=== PATIENT | male | born 1965 | race Caucasian/White ===

== ENCOUNTER 2019-08-07 21:35 | Inpatient (IN) | payer MEDICARE ==
[~2019-08-07] VITALS: Ht 182.9 cm; Wt 97.5 kg
--- NOTE | 2019-08-07 23:20 | NUR ---
PT STATES WHILE SITTING ON EDGE OF BED AT HOME THIS EVENING @~2030 HIS L SIDE BECAME VERY WEAK & HEAVY. STATES HE WAS UNABLE TO PLACE CALL FOR ASSISTANCE TO NEIGHBOR FOR 30 MIN, AND HAD TO SCOOT ACROSS THE FLOOR. STATES ANGEL TO ED, MOST OF THE SYMPTOMS HAD RESOLVED. WHILE WAITING IN THE LOBBY HE EXPERIENCED SIMILIAR S/S, BUT DID NOT LET STAFF KNOW. ON MONITOR. CALL LIGHT INREACH. TBS. WILL CTM.
--- NOTE | 2019-08-07 23:32 | NUR ---
ISIDORO DAN. SPEAKING IN CLEAR SENTANCES.
--- NOTE | 2019-08-07 23:44 | NUR ---
CODE NEURO PAGED / PAGED DR ALLEN FOR DR DOMINGUEZ
--- NOTE | 2019-08-07 23:46 | NUR ---
DR DOMINGUEZ SPOKE WITH DR ALLEN
[2019-08-08 00:03] LABS: BASOPHILS # (AUTO) 0.06 x10^3/uL (0-0.1); BASOPHILS % (AUTO) 1 % (0-1); EOSINOPHILS # (AUTO) 0.16 x10^3/uL (0-0.4); EOSINOPHILS % (AUTO) 3 % (1-7); LYMPHOCYTES # (AUTO) 1.67 x10^3/uL (1-3.4); LYMPHOCYTES % (AUTO) 33 % (22-44); MD NO; MEAN CORPUSCULAR HEMOGLOBIN 30.8 pg (27.5-34.5); MEAN CORPUSCULAR HGB CONC 33.6 g/dL (33.2-36.2); MEAN CORPUSCULAR VOLUME 91.8 fL (81-97); MEAN PLATELET VOLUME 8.9 fL (7.4-10.4); MONOCYTES # (AUTO) 0.36 x10^3/uL (0.2-0.8); MONOCYTES % (AUTO) 7 % (2-9); NEUTROPHILS # (AUTO) 2.74 x10^3/uL (1.8-6.8); NEUTROPHILS % (AUTO) 55 % (42-75); PLATELET COUNT 187 x10^3/uL (130-400); RED BLOOD COUNT 4.63 x10^6/uL (4.38-5.82); RED CELL DISTRIBUTION WIDTH 14.5 % (9.4-14.8)
[2019-08-08 00:08] LABS: ALANINE AMINOTRANSFERASE 22 U/L (12-78); ALBUMIN 3.4 g/dL (3.4-5.0); ANION GAP 5 mmol/L (5-15); CALCIUM 8.7 mg/dL (8.5-10.1); CHLORIDE 108 mmol/L (98-107); CREATININE 1.03 mg/dL (0.7-1.3); INTERNATIONAL NORMALIZED RATIO 0.99 (0.93-1.1); PROTHROMBIN TIME 10.4 Seconds (9.6-11.5)
[2019-08-08 00:12] LABS: ALKALINE PHOSPHATASE 44 U/L (45-117); BILIRUBIN,TOTAL 0.4 mg/dL (0.2-1.0); TOTAL PROTEIN 6.7 g/dL (6.4-8.2); TROPONIN I < 0.015 ng/mL (0.000-0.045)
[2019-08-08] MEDS ORDERED: OMNIPAQUE 350 MG/ML, 100ML BOTTLE ONE (00:12)
--- NOTE | 2019-08-08 00:23 | NUR ---
2ND PIV ESTB. TO CT C CODE NEURO TEAM. NEURO DOC TO DO VIRTUAL EXAM.
--- NOTE | 2019-08-08 00:26 | NUR ---
PT AWARE OF PLAN TO ADMIT. PT CURLED UP IN POSITION ON R SIDE. MAE. HUERTA REMAINS CLEAR.
[2019-08-08] MEDS ORDERED: ONDANSETRON 2MG/ML, 2ML IVPush PRN (01:00)
[2019-08-08] MEDS ORDERED: ATORVASTATIN 40 MG TABLET PO SCH (01:00)
[2019-08-08 01:40] VITALS: BP 155/88
[2019-08-08] MEDS: ASPIRIN 81 MG TABLET EC PO SCH ×2 (02:44→05:56)
[2019-08-08] MEDS: LEVOTHYROXINE 175 MCG TABLET PO SCH (05:56)
[2019-08-08 06:57] LABS: AMPHETAMINE SCREEN, URINE Positive (Negative); BARBITURATE SCREEN, URINE Negative (Negative); BENZODIAZEPINE SCREEN, URINE Negative (Negative); CANNABINOID SCREEN, URINE Negative (Negative); COCAINE SCREEN, URINE Negative (Negative); METHADONE SCREEN, URINE Negative (Negative); OPIATE SCREEN, URINE Negative (Negative)
[2019-08-08 08:25] VITALS: BP 132/87
[2019-08-08] MEDS: INSULIN LISPRO 100 UNITS/ML, PEN SQ-INSULIN SCH ×3 (09:31→16:53)
[2019-08-08] MEDS: NICOTINE 14MG/24 HR PATCH.TD24 TD SCH (10:28)
[2019-08-08 13:30] VITALS: BP 141/87
[2019-08-08 13:30] LABS: FREE T4 (FREE THYROXINE) 0.66 ng/dL (0.76-1.46)
[2019-08-08 19:38] VITALS: BP 135/74
[2019-08-08] MEDS ORDERED: ATORVASTATIN 20 MG TABLET PO SCH (21:00)
[2019-08-09] MEDS: INSULIN LISPRO 100 UNITS/ML, PEN SQ-INSULIN SCH ×4 (01:26→16:35)
[2019-08-09 02:03] VITALS: BP 119/78
[2019-08-09 05:24] LABS: CHOL/HDL RATIO 5.5; LDL/HDL RATIO 3.3 (0.5-3.0)
[2019-08-09] MEDS: LEVOTHYROXINE 175 MCG TABLET PO SCH (05:54)
[2019-08-09] MEDS: ASPIRIN 81 MG TABLET EC PO SCH (05:54)
[2019-08-09 08:30] VITALS: BP 141/88
[2019-08-09] MEDS: NICOTINE 14MG/24 HR PATCH.TD24 TD SCH (11:39)
[2019-08-09 14:48] VITALS: BP 127/82
[2019-08-09] MEDS ORDERED: LEVO100T PO ×2 (18:42)
[2019-08-09] MEDS ORDERED: ASPI81TA45 PO (18:42)
== END 2019-08-09 19:41 | disposition home or self-care (01) | DRG 880 ==
LOC: ED 08-08 00:56 → EDIP 08-08 01:35 → 4WST 08-08 01:39
PROVIDERS: ADMIT Internal Medicine; ATTEND Internal Medicine
DX: F44.4 Conversion disorder with motor symptom or deficit (principal); R47.01 Aphasia; R29.810 Facial weakness; E03.9 Hypothyroidism, unspecified; E11.65 Type 2 diabetes mellitus with hyperglycemia; E78.5 Hyperlipidemia, unspecified; F17.210 Nicotine dependence, cigarettes, uncomplicated; I10 Essential (primary) hypertension; Z79.4 Long term (current) use of insulin; Z79.82 Long term (current) use of aspirin; Z89.512 Acquired absence of left leg below knee; Z97.14 Presence of artificial left leg (complete) (partial)
CPT/HCPCS: 36415; 70450; 70496; 70498; 70551; 71045; 80053; 80061; 80307; 82306; 82607; 82962; 84439; 84443; 84484; 85025; 85610; 85730; 93005; 93306; 96374; 96375; 99291; G0378; Q9967; 92523-GN; J1815